=== PATIENT | female | born 1950 | race Two or more races ===

== ENCOUNTER 2016-07-27 11:07 | Observation (INO) | payer OTHER ==
[~2016-07-27] VITALS: Ht 157.5 cm; Wt 50.0 kg
[2016-07-27 11:09] VITALS: BP 165/66; PULSE 59; RESP 12; TEMP 98.1; O2SAT 100
[2016-07-27 11:41] VITALS: BP 139/64; PULSE 59; RESP 16; O2SAT 99
[2016-07-27] MEDS ORDERED: AMLO5 PO (11:43)
[2016-07-27] MEDS ORDERED: SODIUM CHLOR 0.9% 1000 ML INJ 1,000 ML IV SCH (11:45)
[2016-07-27] MEDS ORDERED: MORPHINE SULFATE 4 MG/ML INJ IV PUSH ONE ×2 (11:45→15:45)
[2016-07-27] MEDS ORDERED: SODIUM CHLORIDE 0.9% FLUSH 5 ML FLUSH IVF PRN (11:45)
[2016-07-27 12:10] LABS: BASOPHIL % 0.2 % (0.0-2.0); EOSINOPHIL % 0.3 % (0.0-4.0); HEMATOCRIT 34.3 % (35.0-46.0); HEMO FLAGS DIFF FINAL; LYMPH % 20.2 % (9.0-44.0); LYMPHOCYTE # 1.7 TH/MM3 (1.0-4.8); MEAN CELL VOLUME 85.8 FL (80.0-100.0); MEAN CORPUSCULAR HEMOGLOBIN 28.4 PG (27.0-34.0); MONO % 6.6 % (0.0-8.0); NEUT % 72.7 % (16.0-70.0); PLATELET COUNT 273 TH/MM3 (150-450); RED BLOOD COUNT 3.99 MIL/MM3 (4.00-5.30); RED CELL DISTRIBUTION WIDTH 13.3 % (11.6-17.2); WHITE BLOOD COUNT 8.2 TH/MM3 (4.0-11.0)
[2016-07-27] MEDS ORDERED: ONDANSETRON HCL 4 MG/2 ML VIAL IV ONE (12:15)
[2016-07-27 12:18] LABS: BLOOD, URINE MOD (NEG); GLUCOSE,URINE NEG (NEG); KETONE, URINE NEG (NEG); MUCUS URINE FEW /lpf (OCC); NITRITE,URINE NEG (NEG); PH, URINE 5.5 (5.0-8.5); SQUAMOUS EPITHELIAL CELL URINE <1 /hpf (0-5); URINE COLOR LIGHT-YELLOW (YELLW/STRAW)
[2016-07-27 12:19] LABS: COMMENT (UR) CULT NOT INDICATED; CULTURE IF INDICATED CULT NOT INDICATED
[2016-07-27 12:28] LABS: ANION GAP 8 MEQ/L (5-15); AST (GOT) 16 U/L (15-37); BICARBONATE 27.9 MEQ/L (21.0-32.0); BLOOD UREA NITROGEN 11 MG/DL (7-18); CHLORIDE 102 MEQ/L (98-107); GLOMERULAR FILTRATION RATE 62 ML/MIN (>89); POTASSIUM 3.6 MEQ/L (3.5-5.1); SODIUM (NA) 138 MEQ/L (136-145)
[2016-07-27 12:31] LABS: ALKALINE PHOSPHATASE 82 U/L (45-117); ALT (GPT) 17 U/L (10-53); TOTAL BILIRUBIN ADULT 0.6 MG/DL (0.2-1.0)
[2016-07-27 13:05] VITALS: BP 159/69; PULSE 59; RESP 18; O2SAT 98
--- NOTE | 2016-07-27 13:29 | PD ---
HPI Chief Complaint: Flank/Kidney Pain Time Seen by Provider: 11:17 Travel History International Travel<30 days: No Contact w/Intl Traveler<30days: No Traveled to known affect area: No History of Present Illness HPI This is a 66-year-old female who presents to the emergency department with left- sided flank pain, constant, moderate severity, that started 5 days ago and has persisted. She denies any fevers or chills. She denies any nausea or vomiting. She denies any dysuria or hematuria. The pain is worse when she moves and improved when she rests. She was told at [facility] on that she had a urinary tract infection. She was given Levaquin which she's been taking for 4 days but she feels like her symptoms are not improving. She did have a CT scan at that time which she says was reassuring. She has a history of an abnormal cervix for which she's was to follow-up with Dr. Orozco [facility] Past Medical History Hypertension: Yes Tetanus Vaccination: Unknown Influenza Vaccination: Yes ?: Not Menopausal: Yes Past Surgical History Surgical History: No Previous Surgery Social History Alcohol Use: No Tobacco Use: No Substance Use: No Allergies-Medications (Allergen,Severity, Reaction): Coded Allergies: No Known Allergies (Unverified , 07/27/16) Reported Meds & Prescriptions Reported Meds & Active Scripts Active Reported Norvasc (Amlodipine Besylate) 5 Mg Tab 5 Mg PO DAILY Review of Systems Except as stated in HPI: all other systems reviewed are Neg Physical Exam Narrative GENERAL: Uncomfortable appearing. SKIN: Warm and dry. HEAD: Atraumatic. Normocephalic. EYES: Pupils equal and round. No injection or drainage. ENT: Moist mucous membranes NECK: Trachea midline. CARDIOVASCULAR: Regular rate and rhythm. No murmur appreciated. RESPIRATORY: Clear to auscultation. Breath sounds equal bilaterally. GASTROINTESTINAL: Abdomen soft, non-tender, nondistended. : Left CVA tenderness. MUSCULOSKELETAL: No obvious deformities. NEUROLOGICAL: Awake and alert. No obvious cranial nerve deficits. Moving all extremities. PSYCHIATRIC: Appropriate mood and affect; insight and judgment normal. Data Data Last Documented VS Vital Signs Date Time Temp Pulse Resp B/P Pulse Ox O2 Delivery O2 Flow Rate FiO2 07/27/16 13:05 59 18 159/69 98 Room Air 07/27/16 11:09 98.1 Orders Complete Blood Count With Diff (07/27/16 11:34) Comprehensive Metabolic Panel (07/27/16 11:34) Lipase (07/27/16 11:34) Urinalysis - C+S If Indicated (07/27/16 11:34) Iv Access Insert/Monitor (07/27/16 11:34) Ecg Monitoring (07/27/16 11:34) Oximetry (07/27/16 11:34) Morphine Inj (Morphine Inj) (07/27/16 11:45) Sodium Chloride 0.9% Flush (Ns Flush) (07/27/16 11:45) Sodium Chlor 0.9% 1000 Ml Inj (Ns 1000 M (07/27/16 11:45) Ondansetron Inj (Zofran Inj) (07/27/16 12:15) Ct Abd/Pel W/O Iv Contrast (07/27/16 ) Spine, Thoracic-Ap/Lat/Sw(3vw) (07/27/16 ) Morphine Inj (Morphine Inj) (07/27/16 15:45) Mri Abdomen W&W/O Contrast (07/27/16 ) Consult Urology (07/27/16 ) Admit Order (Ed Use Only) (07/27/16 16:04) Labs Laboratory Tests Test 07/27/16 11:45 White Blood Count 8.2 TH/MM3 Red Blood Count 3.99 MIL/MM3 Hemoglobin 11.3 GM/DL Hematocrit 34.3 % Mean Corpuscular Volume 85.8 FL Mean Corpuscular Hemoglobin 28.4 PG Mean Corpuscular Hemoglobin 33.0 % Concent Red Cell Distribution Width 13.3 % Platelet Count 273 TH/MM3 Mean Platelet Volume 7.0 FL Neutrophils (%) (Auto) 72.7 % Lymphocytes (%) (Auto) 20.2 % Monocytes (%) (Auto) 6.6 % Eosinophils (%) (Auto) 0.3 % Basophils (%) (Auto) 0.2 % Neutrophils # (Auto) 6.0 TH/MM3 Lymphocytes # (Auto) 1.7 TH/MM3 Monocytes # (Auto) 0.5 TH/MM3 Eosinophils # (Auto) 0.0 TH/MM3 Basophils # (Auto) 0.0 TH/MM3 CBC Comment DIFF FINAL Differential Comment Urine Color LIGHT-YELLOW Urine Turbidity CLEAR Urine pH 5.5 Urine Specific [place] 1.007 Urine Protein NEG mg/dL Urine Glucose (UA) NEG mg/dL Urine Ketones NEG mg/dL Urine Occult Blood MOD Urine Nitrite NEG Urine Bilirubin NEG Urine Urobilinogen LESS THAN 2.0 MG/DL Urine Leukocyte Esterase NEG Urine RBC 1 /hpf Urine WBC 1 /hpf Urine Squamous Epithelial <1 /hpf Cells Urine Mucus FEW /lpf Microscopic Urinalysis Comment CULT NOT INDICATED Sodium Level 138 MEQ/L Potassium Level 3.6 MEQ/L Chloride Level 102 MEQ/L Carbon Dioxide Level 27.9 MEQ/L Anion Gap 8 MEQ/L Blood Urea Nitrogen 11 MG/DL Creatinine 0.90 MG/DL Estimat Glomerular Filtration 62 ML/MIN Rate Random Glucose 103 MG/DL Calcium Level 8.6 MG/DL Total Bilirubin 0.6 MG/DL Aspartate Amino Transf 16 U/L (AST/SGOT) Alanine Aminotransferase 17 U/L (ALT/SGPT) Alkaline Phosphatase 82 U/L Total Protein 7.6 GM/DL Albumin 3.4 GM/DL Lipase 175 U/L [facility] Medical Decision Making Medical Screen Exam Complete: Yes Emergency Medical Condition: Yes Interpretation(s) Afebrile, bradycardic, hypertensive Mild anemia Electrolytes within normal limits Lipase normal Urinalysis: No Infection Last 24 hours Impressions Thoracic Spine X-Ray 07/27/16 0000 Signed Impressions: Service Date/Time: Wednesday, July 27, 2016 13:31 - CONCLUSION: Thoracic spondylosis. No evidence of acute fracture or destructive changes. Rounded calcification is identified in the right upper quadrant of the abdomen which may represent a gallstone. Wilfred Watts MD Abdomen/Pelvis CT 07/27/16 0000 Signed Impressions: Service Date/Time: Wednesday, July 27, 2016 13:36 - CONCLUSION: Mild to moderate hydronephrosis of the left kidney with significant perinephric and paranephric fluid stranding characteristic of recent rupture of the collecting system. No evidence of obstructing calculus. Significant soft tissue swelling along the proximal left ureter. Ureteral mass should be excluded. Cholelithiasis with distended gallbladder. Developing retroperitoneal lymphadenopathy. Wilfred Watts MD Differential Diagnosis Nephrolithiasis, pyelonephritis, pulmonary embolism, pneumonia, thoracic depression fracture, lumbar spine compression fracture Narrative Course This is a 66-year-old female who presents to the emergency department with left- sided flank pain that started 4 days ago. She was seen at an outside hospital and diagnosed with likely pyelonephritis. Here today she continues to appear uncomfortable. She was placed on a monitor and an IV was established. Labs were obtained which were all reassuring. Given her labs were unremarkable but she had a fair amount of pain I repeated her CT imaging which demonstrates a ruptured collecting system with surrounding perinephric stranding. I spoke to Dr. Bowden who recommended an MRI of the abdomen to evaluate for possible ureteral mass. Patient will be admitted for pain control and urologic evaluation. Diagnosis Primary Impression: Flank pain Admitting Information Admitting Physician Requests: Observation Patti Damon MD Jul 27, 2016 13:28
--- NOTE | 2016-07-27 15:20 | RADRPT ---
EXAM DATE/TIME: 07/27/2016 13:31 [facility] COMPARISON: No previous studies available for comparison. INDICATIONS : Left flank pain, no known trauma. MEDICAL HISTORY : None. SURGICAL HISTORY : None. ENCOUNTER: Initial ACUITY: 1 day PAIN SCORE: 8/10 LOCATION: Bilateral thoracic spine FINDINGS: There is normal alignment of the thoracic vertebral bodies. Vertebral body height is maintained. No evidence of fracture or subluxation. Pedicles are intact at all levels. Joint disease with spondylo sis is seen in the mid to lower thoracic spine. Significant decreased bone mineralization is noted Th e paravertebral reflections are not thickened. CONCLUSION: Thoracic spondylosis. No evidence of acute fracture or destructive changes. Rounded calcification is identified in the right upper quadrant of the abdomen which may represent a gallstone. Wilfred Watts MD on July 27, 2016 at 15:16 Board Certified Radiologist. This report was verified electronically.
--- NOTE | 2016-07-27 15:33 | RADRPT ---
EXAM DATE/TIME: 07/27/2016 13:36 [facility] COMPARISON: No previous studies available for comparison. INDICATIONS : Left flank pain x 5 days. ORAL CONTRAST: No oral contrast ingested. RADIATION DOSE: 13.28 CTDIvol (mGy) MEDICAL HISTORY : Hypertension. SURGICAL HISTORY : None. ENCOUNTER: Initial ACUITY: 4 - 6 days PAIN SCALE: 10/10 LOCATION: Left flank TECHNIQUE: Volumetric scanning of the abdomen and pelvis was performed. Using automated exposure control and ad justment of the mA and/or kV according to patient size, radiation dose was kept as low as reasonably achievable to obtain optimal diagnostic quality images. FINDINGS: LOWER LUNGS: Mild atelectasis is seen in the left lung base. LIVER: Simple cysts are identified in both the left and right hepatic lobes. There is no evidence of intrahe patic biliary duct dilatation. Liver is otherwise unremarkable. Gallbladder is moderately distended. There is a densely calcified stone within the neck of the gallbladder. SPLEEN: Normal size without lesion. PANCREAS: Within normal limits. KIDNEYS: The left renal collecting system is mildly to moderately distended. There is significant perinephric fluid collection which tracks along the hilum of the kidney and along the vascular structures. Signif icant soft tissue fullness and thickening is identified at the ureteropelvic junction. There is no ev idence of ureteral dilatation or stone below this level. No calcified stones are seen within the kidn ey or renal pelvis. Right kidney and collecting system are unremarkable. ADRENAL GLANDS: Within normal limits. VASCULAR: There is no aortic aneurysm. BOWEL/MESENTERY: The stomach, small bowel, and colon demonstrate no acute abnormality. There is no free intraperitone al air or fluid. ABDOMINAL WALL: Within normal limits. RETROPERITONEUM: Prominent retroperitoneal lymph nodes ranging in size up to 14 x 10 mm in size are noted. BLADDER: No wall thickening or mass. REPRODUCTIVE: Within normal limits. INGUINAL: There is no lymphadenopathy or hernia. MUSCULOSKELETAL: Within normal limits for patient age. CONCLUSION: Mild to moderate hydronephrosis of the left kidney with significant perinephric and paranephric fluid stranding characteristic of recent rupture of the collecting system. No evidence of obstructing calculus. Significant soft tissue swelling along the proximal left ureter. Ureteral mass should be excluded. Cholelithiasis with distended gallbladder. Developing retroperitoneal lymphadenopathy. Wilfred Watts MD on July 27, 2016 at 15:21 Board Certified Radiologist. This report was verified electronically.
--- NOTE | 2016-07-27 17:27 | HHI.HP ---
HPI Service [facility] Primary Care Physician Unknown Admission Diagnosis flank pain Diagnoses: Chief Complaint: left flank pain (Vane HallInocencia BRANCH EXAMINER) Travel History International Travel<30 Days: No Contact w/Intl Traveler <30 Da: No Traveled to Known Affected Are: No (Vane Hall) History of Present Illness This is a a 66-year-old female who is generally in good health, PMHx of HTN. Presented to ED with complain of left flank since , it's sharp, constant , has been getting worst. Was seen in the ED at [facility] and found with UTI and some type of abnormality in CT of abdomen and pelvis. She was prescribed Levaquin and [place]. Was instructed to follow up with Dr. Orozco but has not done yet. She has been voiding slowly, has not noted any blood in urine, no burning. No fever, no chills. No nausea or vomiting, appetite has been poor. She has not had a BM in 5 days. States she has been [place] 1 tab 3 x a day with some relief. Laboratory work up essentially unremarkable, no leukocytosis, no fever. Repeat CT demonstrated a rupture of collecting system with perinephric stranding. Dr. Damon spoke to Dr. Bowden who recommended an MRI of abdomen to evaluate for ureteral mass. Pt. is seen in the ED in the presence of her son. She has mild tenderness to palpation of left flank. She was been started on empiric antibiotics and Morphine has been given. Pain has lessened. Pt. admitted for further evaluation and treatment. Last Impressions Thoracic Spine X-Ray 07/27/16 0000 Signed Impressions: Service Date/Time: Wednesday, July 27, 2016 13:31 - CONCLUSION: Thoracic spondylosis. No evidence of acute fracture or destructive changes. Rounded calcification is identified in the right upper quadrant of the abdomen which may represent a gallstone. Wilfred Watts MD Abdomen/Pelvis CT 07/27/16 0000 Signed Impressions: Service Date/Time: Wednesday, July 27, 2016 13:36 - CONCLUSION: Mild to moderate hydronephrosis of the left kidney with significant perinephric and paranephric fluid stranding characteristic of recent rupture of the collecting system. No evidence of obstructing calculus. Significant soft tissue swelling along the proximal left ureter. Ureteral mass should be excluded. Cholelithiasis with distended gallbladder. Developing retroperitoneal lymphadenopathy. Wilfred Watts MD (Vane Hall) Review of Systems Constitutional: COMPLAINS OF: Change in appetite, DENIES: Diaphoretic episodes , Fatigue, Fever, Weight gain, Weight loss, Chills, Dizziness, Night Sweats Endocrine: DENIES: Abnorml menstrual pattern, Heat/cold intolerance, Polydipsia , Polyuria, Polyphagia Eyes: DENIES: Blurred vision, Diplopia, Eye inflammation, Eye pain, Vision loss , Photosensitivity, Double Vision Ears, nose, mouth, throat: DENIES: Tinnitus, Hearing loss, Vertigo, Nasal discharge, Oral lesions, Throat pain, Hoarseness, Ear Pain, Running Nose, Epistaxis, Sinus Pain, Toothache, Odynophagia Respiratory: DENIES: Apneas, Cough, Snoring, Wheezing, Hemoptysis, Sputum production, Shortness of breath Cardiovascular: DENIES: Chest pain, Palpitations, Syncope, Dyspnea on Exertion , PND, Lower Extremity Edema, Orthopnea, Claudication Gastrointestinal: COMPLAINS OF: Abdominal pain (left flank pain ), Constipation , DENIES: Black stools, Bloody stools, Diarrhea, Nausea, Vomiting, Difficulty Swallowing, Anorexia Genitourinary: COMPLAINS OF: Urgency, DENIES: Abnormal vaginal bleeding, Dysmenorrhea, Dyspareunia, Sexual dysfunction, Urinary frequency, Urinary incontinence, Hematuria, Dysuria, Nocturia, Vaginal discharge Musculoskeletal: DENIES: Joint pain, Muscle aches, Stiffness, Joint Swelling, Back pain, Neck pain Integumentary: DENIES: Abnormal pigmentation, Pruritus, Rash, Nail changes, Breast masses, Breast skin changes, Nipple discharge Hematologic/lymphatic: DENIES: Bruising, Lymphadenopathy Immunologic/allergic: DENIES: Eczema, Urticaria Neurologic: DENIES: Abnormal gait, Headache, Localized weakness, Paresthesias, Seizures, Speech Problems, Tremor, Poor Balance Psychiatric: DENIES: Anxiety, Confusion, Mood changes, Depression, Hallucinations, Agitation, Suicidal Ideation, Homicidal Ideation, Delusions ( Vane Hall) Past Family Social History Past Medical History HTN Previous colonoscopy in 2013, normal findings Up to date on Mammograms has not had a pelvic exam in many years > 5 Past Surgical History None Reported Medications Reported Meds & Active Scripts Active Reported Norvasc (Amlodipine Besylate) 5 Mg Tab 5 Mg PO DAILY (Vane Hall) Allergies: Coded Allergies: No Known Allergies (Unverified , 07/27/16) Active Ordered Medications Inpatient Medications Amlodipine Besylate 5 mg 5 mg DAILY PO ; Start 07/28/16 at 09:00 Ceftriaxone Sodium/Sodium Chloride (Rocephin Inj/NS Inj) 100 ml @ 200 mls/hr Q24H IV ; Start 07/27/16 at 18:00 IV Flush 2 ml 2 ml UNSCH PRN IVF FLUSH AFTER USING IV ACCESS; Start 07/27/16 at 11:45 Morphine Sulfate (Morphine Inj) 4 mg Q3H PRN IV PUSH PAIN 5 TO 10; Start at 20:00 Ondansetron HCl (Zofran Inj) 4 mg Q8HR PRN IV PUSH n/v; Start 07/27/16 at 22:00 Sodium Chloride 1,000 ml @ 84 mls/hr [id number] IV ; Start 07/27/16 at 17:15 Sodium Chloride (NS 1000 ml Inj) 1,000 ml @ 999 mls/hr Q1H1M IV Last administered on 07/27/16t 12:18; Start 07/27/16 at 11:45; Stop 07/27/16 at 12:45 ; Status DC Family History Mother from colon cancer Father from old age Social History , has 7 children. No ETOH, no substance abuse, no smoking. 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 (Vane Hall) Physical Exam Vital Signs Vital Signs Date Time Temp Pulse Resp B/P Pulse Ox O2 Delivery O2 Flow Rate FiO2 07/27/16 11:41 59 16 139/64 99 Room Air 07/27/16 11:09 98.1 59 12 165/66 100 Room Air Physical Exam GENERAL: This is a well-nourished, well-developed patient, in no apparent distress. SKIN: No rashes, ecchymoses or lesions. Cool and dry. HEAD: Atraumatic. Normocephalic. No temporal or scalp tenderness. EYES: Pupils equal round and reactive. Extraocular motions intact. No scleral icterus. No injection or drainage. ENT: Nose without bleeding, purulent drainage or septal hematoma. Throat without erythema, tonsillar hypertrophy or exudate. Uvula midline. Airway patent. NECK: Trachea midline. No JVD or lymphadenopathy. Supple, nontender, no meningeal signs. CARDIOVASCULAR: Regular rate and rhythm without murmurs, gallops, or rubs. RESPIRATORY: Clear to auscultation. Breath sounds equal bilaterally. No wheezes , rales, or rhonchi. GASTROINTESTINAL: Abdomen soft, nondistended. Mild tenderness to left flank. No hepato-splenomegaly, or palpable masses. No guarding. MUSCULOSKELETAL: Extremities without clubbing, cyanosis, or edema. No joint tenderness, effusion, or edema noted. No calf tenderness. Negative Homans sign bilaterally. NEUROLOGICAL: Awake and alert. Cranial nerves II through XII intact. Motor and sensory grossly within normal limits. Five out of 5 muscle strength in all muscle groups. Normal speech. Laboratory Laboratory Tests Test 07/27/16 11:45 White Blood Count 8.2 Red Blood Count 3.99 Hemoglobin 11.3 Hematocrit 34.3 Mean Corpuscular Volume 85.8 Mean Corpuscular Hemoglobin 28.4 Mean Corpuscular Hemoglobin 33.0 Concent Red Cell Distribution Width 13.3 Platelet Count 273 Mean Platelet Volume 7.0 Neutrophils (%) (Auto) 72.7 Lymphocytes (%) (Auto) 20.2 Monocytes (%) (Auto) 6.6 Eosinophils (%) (Auto) 0.3 Basophils (%) (Auto) 0.2 Neutrophils # (Auto) 6.0 Lymphocytes # (Auto) 1.7 Monocytes # (Auto) 0.5 Eosinophils # (Auto) 0.0 Basophils # (Auto) 0.0 CBC Comment DIFF FINAL Differential Comment Urine Color LIGHT-YELLOW Urine Turbidity CLEAR Urine pH 5.5 Urine Specific [place] 1.007 Urine Protein NEG Urine Glucose (UA) NEG Urine Ketones NEG Urine Occult Blood MOD Urine Nitrite NEG Urine Bilirubin NEG Urine Urobilinogen LESS THAN 2.0 Urine Leukocyte Esterase NEG Urine RBC 1 Urine WBC 1 Urine Squamous Epithelial <1 Cells Urine Mucus FEW Microscopic Urinalysis Comment CULT NOT INDICATED Sodium Level 138 Potassium Level 3.6 Chloride Level 102 Carbon Dioxide Level 27.9 Anion Gap 8 Blood Urea Nitrogen 11 Creatinine 0.90 Estimat Glomerular Filtration 62 Rate Random Glucose 103 Calcium Level 8.6 Total Bilirubin 0.6 Aspartate Amino Transf 16 (AST/SGOT) Alanine Aminotransferase 17 (ALT/SGPT) Alkaline Phosphatase 82 Total Protein 7.6 Albumin 3.4 Lipase 175 (Vane Hall) Result Diagram: 07/27/16 1145 07/27/16 1145 Imaging Last Impressions Thoracic Spine X-Ray 07/27/16 0000 Signed Impressions: Service Date/Time: Wednesday, July 27, 2016 13:31 - CONCLUSION: Thoracic spondylosis. No evidence of acute fracture or destructive changes. Rounded calcification is identified in the right upper quadrant of the abdomen which may represent a gallstone. Wilfred Watts MD Abdomen/Pelvis CT 07/27/16 0000 Signed Impressions: Service Date/Time: Wednesday, July 27, 2016 13:36 - CONCLUSION: Mild to moderate hydronephrosis of the left kidney with significant perinephric and paranephric fluid stranding characteristic of recent rupture of the collecting system. No evidence of obstructing calculus. Significant soft tissue swelling along the proximal left ureter. Ureteral mass should be excluded. Cholelithiasis with distended gallbladder. Developing retroperitoneal lymphadenopathy. Wilfred Watts MD (Vane Hall) Assessment and Plan Problem List: (1) Flank pain (2) Pyelonephritis (3) Hydronephrosis of left kidney (4) possible rupture of collecting system (5) Constipation Assessment and Plan Admit to Dr. El 66 year old female admitted with left flank pain, recently dx with pyelonephritis. CT of abdomen and pelvis done with findings of mild to moderate hydronephrosis of the left kidney with significant perinephric and paranephric fluid stranding characteristic of recent rupture of the collecting system. No evidence of obstructing calculus. Significant soft tissue swelling along the proximal left ureter. Ureteral mass should be excluded. Cholelithiasis with distended gallbladder. Developing retroperitoneal lymphadenopathy. -continue with IVF -IV Rocephin, follow urine cultures -Dr. Bowden has been consulted, input appreciated -MRI of abdomen ordered to evaluate for possible mass. Cholelithiasis with distended gallbladder -monitor for now HTN, stable -continue home meds Constipation -Colace 100 mg PO BID -Dulcolax, MOM PRN Home medications reviewed, initiated as indicated SCDs for DVT prophylaxis Plan of care discussed with pt and son, questions answered. Plan of care discussed with attending and RN. Further management of the patient will be dependent on the hospital course. This patient was seen by myself and Dr. El, this H/P is written on his behalf. (Vane Hall) Assessment and Plan pt is seen & examined d/w PT d/w vane see orders intractable left flank pain /left perinephric stranding? left ureteral mass obtain urology consult IVF iv Abx 'analgesic see H&P will f/u Franc El MD Jul 27, 2016 17:52 (Franc El MD) Problem Qualifiers (1) Constipation: Qualified Code: K59.00 - Constipation, unspecified constipation type Vane Hall Jul 27, 2016 17:27 Franc El MD Jul 28, 2016 09:30
[2016-07-27 17:37] VITALS: BP 157/72
--- NOTE | 2016-07-27 17:52 | HHI.PR ---
Objective Objective Results - Vital Signs Date Time Temp Pulse Resp B/P Pulse Ox O2 Delivery O2 Flow Rate FiO2 07/27/16 17:37 54 18 157/72 98 07/27/16 13:05 59 18 159/69 98 Room Air 07/27/16 11:41 59 16 139/64 99 Room Air 07/27/16 11:09 98.1 59 12 165/66 100 Room Air Result Diagram: 07/27/16 1145 07/27/16 1145 Other Results Laboratory Tests Test 07/27/16 11:45 White Blood Count 8.2 Red Blood Count 3.99 Hemoglobin 11.3 Hematocrit 34.3 Mean Corpuscular Volume 85.8 Mean Corpuscular Hemoglobin 28.4 Mean Corpuscular Hemoglobin 33.0 Concent Red Cell Distribution Width 13.3 Platelet Count 273 Mean Platelet Volume 7.0 Neutrophils (%) (Auto) 72.7 Lymphocytes (%) (Auto) 20.2 Monocytes (%) (Auto) 6.6 Eosinophils (%) (Auto) 0.3 Basophils (%) (Auto) 0.2 Neutrophils # (Auto) 6.0 Lymphocytes # (Auto) 1.7 Monocytes # (Auto) 0.5 Eosinophils # (Auto) 0.0 Basophils # (Auto) 0.0 CBC Comment DIFF FINAL Differential Comment Urine Color LIGHT-YELLOW Urine Turbidity CLEAR Urine pH 5.5 Urine Specific [place] 1.007 Urine Protein NEG Urine Glucose (UA) NEG Urine Ketones NEG Urine Occult Blood MOD Urine Nitrite NEG Urine Bilirubin NEG Urine Urobilinogen LESS THAN 2.0 Urine Leukocyte Esterase NEG Urine RBC 1 Urine WBC 1 Urine Squamous Epithelial <1 Cells Urine Mucus FEW Microscopic Urinalysis Comment CULT NOT INDICATED Sodium Level 138 Potassium Level 3.6 Chloride Level 102 Carbon Dioxide Level 27.9 Anion Gap 8 Blood Urea Nitrogen 11 Creatinine 0.90 Estimat Glomerular Filtration 62 Rate Random Glucose 103 Calcium Level 8.6 Total Bilirubin 0.6 Aspartate Amino Transf 16 (AST/SGOT) Alanine Aminotransferase 17 (ALT/SGPT) Alkaline Phosphatase 82 Total Protein 7.6 Albumin 3.4 Lipase 175 Physical Exam Physical Exam pt is seen & examined d/w PT d/w karina see orders intractable left flank pain /left perinephric stranding? left ureteral mass obtain urology consult IVF iv Abx 'analgesic see H&P will f/u Franc El MD Jul 27, 2016 17:52
[2016-07-27] MEDS: cefTRIAXone INJ 1,000 MG in SODIUM CHLORIDE 0.9% INJ 100 ML IV SCH (18:26)
[2016-07-27] MEDS: SODIUM CHLOR 0.9% 1000 ML INJ 1,000 ML IV SCH (18:28)
[2016-07-27] MEDS ORDERED: GADODIAMIDE PF 287 MG/ML 10 ML VIAL (for RAD MRI) IV ONE (19:18)
[2016-07-27] MEDS ORDERED: BISACODYL 10 MG SUPP RECTAL PRN (19:45)
[2016-07-27] MEDS ORDERED: MAGNESIUM HYDROXIDE SUSP 30 ML CUP PO PRN (19:45)
--- NOTE | 2016-07-27 20:09 | RADRPT ---
EXAM DATE/TIME: 07/27/2016 18:56 [facility] COMPARISON: CT ABDOMEN & PELVIS W/O CONTRAST, July 27, 2016, 13:36. INDICATIONS : Abnormal CT scan. CONTRAST: 5 cc Omniscan (gadodiamide) IV MEDICAL HISTORY : None. SURGICAL HISTORY : None. ENCOUNTER: Subsequent ACUITY: 2 day PAIN SCORE: 4/10 LOCATION: Abdomen TECHNIQUE: Multiplanar, multisequence magnetic resonance imaging of the abdomen was performed wit hout and with intravenous contrast. FINDINGS: There is marked perinephric stranding about the left kidney. I do not see an etiology for the obstruction. Retrograde pyelogram is suggested. Cysts are seen in the liver. Renal parenchyma are unremarkable. There is minimal paraaortic adenopathy as described previously. Point of obstruction is not visualiz ed. CONCLUSION: Point of obstruction on the left is not visualized. Kidneys are intrinsically normal . Retrograde pyelogram is suggested. Raghu Anthony MD FACR on July 27, 2016 at 19:42 Board Certified Radiologist. This report was verified electronically.
[2016-07-27] MEDS: MORPHINE SULFATE 4 MG/ML INJ IV PUSH PRN (20:33)
[2016-07-27] MEDS: DOCUSATE SODIUM 100 MG CAP PO SCH (20:33)
[2016-07-27 21:40] VITALS: BP 150/67; PULSE 66; RESP 18; TEMP 98; O2SAT 92
[2016-07-27] MEDS ORDERED: ONDANSETRON HCL 4 MG/2 ML VIAL IV PUSH PRN (22:00)
[2016-07-28 01:41] VITALS: BP 133/67; PULSE 78; RESP 20; TEMP 98; O2SAT 95
[2016-07-28 03:29] VITALS: PULSE 69
[2016-07-28] MEDS: MORPHINE SULFATE 4 MG/ML INJ IV PUSH PRN ×2 (04:08→07:32)
[2016-07-28] MEDS: SODIUM CHLOR 0.9% 1000 ML INJ 1,000 ML IV SCH ×2 (05:10→17:05)
[2016-07-28 05:47] LABS: BICARBONATE 29.3 MEQ/L (21.0-32.0); POTASSIUM 3.8 MEQ/L (3.5-5.1)
[2016-07-28 06:46] VITALS: BP 120/70; PULSE 56; RESP 20; TEMP 98.1; O2SAT 98
[2016-07-28 08:00] VITALS: BP 130/54; PULSE 77; PULSE 79; RESP 16; TEMP 99.6; O2SAT 96
[2016-07-28] MEDS: DOCUSATE SODIUM 100 MG CAP PO SCH (08:39)
--- NOTE | 2016-07-28 08:41 | HHI.PR ---
Subjective Subjective Remarks sitting up, c/o pain, morphine not working upset, wants to talk to doctor and find out what is causing pain no fever no cp no sob has not had BM yet son at [facility] informed of MRI findings and plan for today states she had a recent abnormal PAP and was told to see Dr. Orozco Review of Systems Constitutional Constitutional Remarks 12 point ROS completed, negative except as noted above Vitals/Results Vital Signs Vital Signs Date Time Temp Pulse Resp B/P Pulse Ox O2 Delivery O2 Flow Rate FiO2 07/28/16 06:46 98.1 56 20 120/70 98 07/28/16 05:29 18 07/28/16 03:29 69 07/28/16 01:41 98.0 78 20 133/67 95 07/27/16 21:40 98.0 66 18 150/67 92 07/27/16 17:37 54 18 157/72 98 07/27/16 13:05 59 18 159/69 98 Room Air 07/27/16 11:41 59 16 139/64 99 Room Air 07/27/16 11:09 98.1 59 12 165/66 100 Room Air CBC/BMP: 07/27/16 1145 07/28/16 0445 Lab Results Laboratory Tests Test 07/27/16 07/28/16 11:45 04:45 White Blood Count 8.2 TH/MM3 Red Blood Count 3.99 MIL/MM3 Hemoglobin 11.3 GM/DL Hematocrit 34.3 % Mean Corpuscular Volume 85.8 FL Mean Corpuscular Hemoglobin 28.4 PG Mean Corpuscular Hemoglobin 33.0 % Concent Red Cell Distribution Width 13.3 % Platelet Count 273 TH/MM3 Mean Platelet Volume 7.0 FL Neutrophils (%) (Auto) 72.7 % Lymphocytes (%) (Auto) 20.2 % Monocytes (%) (Auto) 6.6 % Eosinophils (%) (Auto) 0.3 % Basophils (%) (Auto) 0.2 % Neutrophils # (Auto) 6.0 TH/MM3 Lymphocytes # (Auto) 1.7 TH/MM3 Monocytes # (Auto) 0.5 TH/MM3 Eosinophils # (Auto) 0.0 TH/MM3 Basophils # (Auto) 0.0 TH/MM3 CBC Comment DIFF FINAL Differential Comment Urine Color LIGHT-YELLOW Urine Turbidity CLEAR Urine pH 5.5 Urine Specific Morris 1.007 Urine Protein NEG mg/dL Urine Glucose (UA) NEG mg/dL Urine Ketones NEG mg/dL Urine Occult Blood MOD Urine Nitrite NEG Urine Bilirubin NEG Urine Urobilinogen LESS THAN 2.0 MG/DL Urine Leukocyte Esterase NEG Urine RBC 1 /hpf Urine WBC 1 /hpf Urine Squamous Epithelial <1 /hpf Cells Urine Mucus FEW /lpf Microscopic Urinalysis Comment CULT NOT INDICATED Sodium Level 138 MEQ/L 141 MEQ/L Potassium Level 3.6 MEQ/L 3.8 MEQ/L Chloride Level 102 MEQ/L 104 MEQ/L Carbon Dioxide Level 27.9 MEQ/L 29.3 MEQ/L Anion Gap 8 MEQ/L 8 MEQ/L Blood Urea Nitrogen 11 MG/DL 10 MG/DL Creatinine 0.90 MG/DL 0.83 MG/DL Estimat Glomerular Filtration 62 ML/MIN 68 ML/MIN Rate Random Glucose 103 MG/DL 95 MG/DL Calcium Level 8.6 MG/DL 8.2 MG/DL Total Bilirubin 0.6 MG/DL Aspartate Amino Transf 16 U/L (AST/SGOT) Alanine Aminotransferase 17 U/L (ALT/SGPT) Alkaline Phosphatase 82 U/L Total Protein 7.6 GM/DL Albumin 3.4 GM/DL Lipase 175 U/L Imaging Remarks Last Impressions Thoracic Spine X-Ray 07/27/16 0000 Signed Impressions: Service Date/Time: Wednesday, July 27, 2016 13:31 - CONCLUSION: Thoracic spondylosis. No evidence of acute fracture or destructive changes. Rounded calcification is identified in the right upper quadrant of the abdomen which may represent a gallstone. Wilfred Watts MD Abdomen/Pelvis CT 07/27/16 0000 Signed Impressions: Service Date/Time: Wednesday, July 27, 2016 13:36 - CONCLUSION: Mild to moderate hydronephrosis of the left kidney with significant perinephric and paranephric fluid stranding characteristic of recent rupture of the collecting system. No evidence of obstructing calculus. Significant soft tissue swelling along the proximal left ureter. Ureteral mass should be excluded. Cholelithiasis with distended gallbladder. Developing retroperitoneal lymphadenopathy. Wilfred Watts MD Abdomen MRI 07/27/16 0000 Signed Impressions: Service Date/Time: Wednesday, July 27, 2016 18:56 - CONCLUSION: Point of obstruction on the left is not visualized. Kidneys are intrinsically normal. Retrograde pyelogram is suggested. Raghu Anthony MD FACR Physical Exam General General Appearance: Well Developed, Well Nourished, No Acute Distress, Comfortable Eyes Eye Exam: Pupils Equal, Pupils Reactive Ears & Nose Ears & Nose Exam: Nasal Mucosa Shafter Throat Throat Exam: Oral Mucosa Shafter & Moist Neck Neck Exam: Neck Supple, Trachea Midline Pulmonary Resp Exam: Clear Bilaterally, No Distress Cardiology CV Exam: Regular, Good Perfusion Gastrointestinal/Abdomen GI Exam: Soft, Bowel Sounds Present, Non-Distended GI Remarks left flank tenderness Musculoskeletal MS Exam: Joints Intact Integumentary Skin Exam: Warm, Dry Extremeties Extremities Exam: No Edema, Pedal Pulses Palpable Neurologic Neuro Exam: Alert, Awake, Oriented, Speech Clear, Moving All Extremities, No Focal Deficits VTE Prophylaxis VTE Prophylaxis Device: SCDs Assessment/Plan Problem List: (1) Flank pain (2) Pyelonephritis (3) Hydronephrosis of left kidney (4) possible rupture of collecting system (5) Constipation Assessment/Plan 66 year old female admitted with left flank pain, recently dx with pyelonephritis. CT of abdomen and pelvis done with findings of mild to moderate hydronephrosis of the left kidney with significant perinephric and paranephric fluid stranding characteristic of recent rupture of the collecting system. No evidence of obstructing calculus. Significant soft tissue swelling along the proximal left ureter. Ureteral mass should be excluded. Cholelithiasis with distended gallbladder. Developing retroperitoneal lymphadenopathy. -continue with IVF -IV Rocephin, follow urine cultures -Dr. Bowden has been consulted, input appreciated -MRI of abdomen done, results noted, point of obstruction not visualized, kidneys intrinsically small normal, retrograde pyelogram is suggested. -renal function stable, voiding well --D/C Morphine, change to Dilaudid Cholelithiasis with distended gallbladder -monitor for now HTN, stable -continue home meds Constipation, no BM yet -Colace 100 mg PO BID -Dulcolax, MOM PRN Abnormal pap -has been referred to Dr. Orozco, f/u as OP SCDs for DVT prophylaxis continue to monitor, f/u after Dr. Bowden evaluates D/W RN D/W pt and son D/W Dr. El This patient was seen by myself and Dr. El, this note is written on his behalf. Problem Qualifiers (1) Constipation: Qualified Code: K59.00 - Constipation, unspecified constipation type [facility] Jul 28, 2016 08:41
[2016-07-28] MEDS ORDERED: HYDROmorphone HCL PF 1 MG/ML VIAL IV PUSH PRN (08:45)
[2016-07-28] MEDS ORDERED: amLODIPine BESYLATE 5 MG TAB PO SCH (09:00)
[2016-07-28 10:29] LABS: HEMATOCRIT 31.2 % (35.0-46.0); MEAN CELL VOLUME 85.8 FL (80.0-100.0); MEAN CORPUSCULAR HEMOGLOBIN 27.6 PG (27.0-34.0); MEAN CORPUSCULAR HGB CONC 32.2 % (32.0-36.0); PLATELET COUNT 249 TH/MM3 (150-450); RED BLOOD COUNT 3.64 MIL/MM3 (4.00-5.30); RED CELL DISTRIBUTION WIDTH 13.4 % (11.6-17.2); REVIEW FLAG FINAL; WHITE BLOOD COUNT 9.7 TH/MM3 (4.0-11.0)
[2016-07-28 12:53] VITALS: BP 148/69; PULSE 84; RESP 16; TEMP 99.1; O2SAT 94
[2016-07-28] MEDS ORDERED: DOCU1CAP39 PO (16:51)
--- NOTE | 2016-07-28 16:51 | HHI.DCPOC ---
Discharge Care Plan Diagnosis: (1) Flank pain (2) Pyelonephritis (3) Hydronephrosis of left kidney (4) possible rupture of collecting system (5) Constipation Your Health Problems Are: Anxiety Additional Problems PAIN Goals to Promote Your Health * To prevent worsening of your condition and complications * To maintain your health at the optimal level Directions to Meet Your Goals Take your medications as prescribed Follow your dietary instruction Follow activity as directed Keep your appointments as scheduled Take your immunizations and boosters as scheduled If your symptoms worsen call your PCP, if no PCP go to Urgent Care Center or Emergency Room Smoking is Dangerous to Your Health. Avoid second hand smoke Call the 24-hour hour crisis hotline for domestic abuse at [facility] Jul 28, 2016 16:51
--- NOTE | 2016-07-28 17:07 | PD.CONS ---
[facility] Service Urology Consult Requested By Reason for Consult Left hydronephrosis Primary Care Physician Unknown Diagnosis: (1) Flank pain ICD Code: R10.9 (2) Pyelonephritis ICD Code: N12 (3) Hydronephrosis of left kidney ICD Code: N13.30 (4) possible rupture of collecting system (5) Constipation ICD Code: K59.00 History of Present Illness 58 year-old female with no prior urologic history who developed left flank pain last week. She initially presented to [facility] emergency room and was diagnosed with left pyelonephritis and treated with antibiotics. She presented to [place] emergency room yesterday with ongoing left flank pain. A CT scan study was performed that demonstrated moderate left hydronephrosis with perinephric fluid stranding consistent with forniceal rupture. No definitive renal or ureteral stones were seen. There was significant soft tissue swelling noted along the proximal left ureter. Patient was admitted for analgesic support and had an MRI study ordered. The MRI study fail to demonstrate any ongoing hydronephrosis of either kidney, evidence of mass lesions or calculi. Despite the negative MRI findings, the patient continued to complain of left flank pain albeit of a lesser magnitude. Patient is vital signs have remained stable and there was no evidence of any significant abnormalities on her lab values. At the time of consultation the patient rated her pain a 5 out of 10. Patient denies a fever or gross hematuria. Urinalysis was negative. Review of Systems Genitourinary: DENIES: Hematuria, Dysuria Musculoskeletal: COMPLAINS OF: Back pain (left flank) Other Remainder of systems review were negative Past Family Social History Past Medical History Hypertension Past Surgical History Denies Reported Medications Norvas Allergies: Coded Allergies: No Known Allergies (Unverified , 07/27/16) Active Ordered Medications Refer to EMR Family History Mother from colon cancer Social History Denies tobacco, alcohol or intravenous drug abuse Physical Exam Vital Signs Vital Signs Date Time Temp Pulse Resp B/P Pulse Ox O2 Delivery O2 Flow Rate FiO2 07/28/16 12:53 99.1 84 16 148/69 94 07/28/16 08:00 79 07/28/16 08:00 99.6 77 16 130/54 96 07/28/16 07:37 20 07/28/16 06:46 98.1 56 20 120/70 98 07/28/16 03:29 69 07/28/16 01:41 98.0 78 20 133/67 95 07/27/16 21:40 98.0 66 18 150/67 92 07/27/16 17:37 54 18 157/72 98 Physical Exam GENERAL: This is a well-nourished, well-developed patient, in no apparent distress. SKIN: No rashes, ecchymoses or lesions. Cool and dry. HEAD: Atraumatic. Normocephalic. No temporal or scalp tenderness. EYES: Pupils equal round and reactive. Extraocular motions intact. No scleral icterus. No injection or drainage. ENT: Nose without bleeding, purulent drainage or septal hematoma. Throat without erythema, tonsillar hypertrophy or exudate. Uvula midline. Airway patent. NECK: Trachea midline. No JVD or lymphadenopathy. Supple, nontender, no meningeal signs. CARDIOVASCULAR: Regular rate and rhythm without murmurs, gallops, or rubs. RESPIRATORY: Clear to auscultation. Breath sounds equal bilaterally. No wheezes , rales, or rhonchi. GASTROINTESTINAL: Abdomen soft, non-tender, nondistended. No hepato-splenomegaly , or palpable masses. No guarding. : No CVA tenderness MUSCULOSKELETAL: Extremities without clubbing, cyanosis, or edema. No joint tenderness, effusion, or edema noted. No calf tenderness. Negative Homans sign bilaterally. NEUROLOGICAL: Awake and alert. Cranial nerves II through XII intact. Motor and sensory grossly within normal limits. Five out of 5 muscle strength in all muscle groups. Normal speech. Laboratory Laboratory Tests Test 07/28/16 07/28/16 04:45 10:13 Sodium Level 141 Potassium Level 3.8 Chloride Level 104 Carbon Dioxide Level 29.3 Anion Gap 8 Blood Urea Nitrogen 10 Creatinine 0.83 Estimat Glomerular Filtration 68 Rate Random Glucose 95 Calcium Level 8.2 White Blood Count 9.7 Red Blood Count 3.64 Hemoglobin 10.1 Hematocrit 31.2 Mean Corpuscular Volume 85.8 Mean Corpuscular Hemoglobin 27.6 Mean Corpuscular Hemoglobin 32.2 Concent Red Cell Distribution Width 13.4 Platelet Count 249 Mean Platelet Volume 7.1 Result Diagram: 07/28/16 1013 07/28/[address] scan and MRI with findings as outlined above Assessment and Plan Assessment and Plan Urologic impression: #1 recent development of left hydronephrosis with forniceal rupture of indeterminate etiology possibly related to recent stone passage. #2 resolution of the left hydronephrosis Plan: #1 urologically stable to DC home on oral pain medication #2 will have my office arrange outpatient evaluation to include cystoscopy, left retrograde pyelogram and possible left ureteroscopy. Problem Qualifiers (1) Constipation: Qualified Code: K59.00 - Constipation, unspecified constipation type Ronnie Bowden MD Jul 28, 2016 17:06
[2016-07-28] MEDS: cefTRIAXone INJ 1,000 MG in SODIUM CHLORIDE 0.9% INJ 100 ML IV SCH (18:00)
[2016-07-28] MEDS ORDERED: HYDR-3288 PO (18:10)
[2016-07-28] MEDS ORDERED: ACETAMINOPHEN/HYDROcodone 325 MG/7.5 MG TAB PO PRN (18:30)
[2016-08-12] MEDS ORDERED: DOCU100C PO (10:33)
== END 2016-07-28 20:52 | disposition home or self-care (01) ==
LOC: NEPC 11:07 → NEDA 16:05 → NEPGCP 17:56
PROVIDERS: ADMIT Specialist; ATTEND Specialist
DX: R10.9 Unspecified abdominal pain (principal); N12 Tubulo-interstitial nephritis, not specified as acute or chronic; N13.30 Unspecified hydronephrosis; K59.00 Constipation, unspecified; I10 Essential (primary) hypertension; M47.894 Other spondylosis, thoracic region; Z80.0 Family history of malignant neoplasm of digestive organs
CPT/HCPCS: 72072; 74176; 74183; 80048; 80053; 81001; 83690; 85025; 85027; 96374; 96375; 96376; 99285; A9579; G0378; J0696; J1170; J2270; J2405; J7030

== ENCOUNTER → 2016-07-30 | Day surgery (SDC) | payer OTHER ==
[~2016-07-30] VITALS: Ht 157.5 cm; Wt 49.1 kg
[~2016-07-30] MED LIST: AMLO5 PO; DO NOT ADM ANY ANTICOAGULANT DRUGS XX PRN; DOCU100C PO; DOCU1CAP39 PO; HYDR-3288 PO; INSULIN HUMAN REGULAR 1,000 UNITS/10 ML VIAL SQ PRN; IOHEXOL 300 MG/ML 50 ML BTL (for RAD DIAG) ONE; LACTATED RINGER'S 1000 ML IV SCH; METOPROLOL TARTRATE 25 MG TAB PO PRN; MIDAZOLAM HCL 2 MG/2 ML VIAL ONE; ONDANSETRON HCL 4 MG/2 ML VIAL IV PRN; ONDANSETRON HCL 4 MG/2 ML VIAL IV PUSH ONE; PROPOFOL 200 MG/20 ML AMP IV ONE; SODIUM CHLORID 0.9% 500 ML IV SCH; SODIUM CHLORIDE 0.9% INJ 100 ML ONE; ceFAZolin 1,000 MG/NS 100 ML IV SCH; ceFAZolin INJ 1,000 MG VIAL ONE; oxyCODONE/ACETAMINOPHEN 5 MG/325 MG TAB PO PRN
[2016-07-30 11:41] VITALS: BP 150/61; PULSE 64; RESP 16; TEMP 97.8; O2SAT 100
[2016-07-30 14:25] VITALS: BP 149/75; PULSE 72; RESP 18; TEMP 98.2; O2SAT 100
--- NOTE | 2016-08-02 23:58 | EKG ---
Date Performed: 07/30/2016 Time Performed: 11:34:15 PTAGE: 66 years EKG: Sinus rhythm Nonspecific ST and T wave abnormalities BORDERLINE ECG NO PREVIOUS TRACING DOCTOR: Aníbal Hudson Interpretating Date/Time 08/02/2016 23:57:12
--- NOTE | 2016-08-04 07:19 | MP ---
cc: ELI BOWDEN MD DATE OF SURGERY: 07/30/2016 INDICATION FOR PROCEDURE This is the case of a pleasant 66-year-old female who recently presented to the emergency room with left flank pain. Work-up included a CT scan that demonstrated left hydronephrosis with waterseal rupture. No definitive obstructing stones were seen. There was some edema noted to the proximal left ureter. A subsequent MRI failed to demonstrate any significant pathology. The patient presents today to complete her work-up with cystoscopy and a left retrograde pyelogram with possible left ureteroscopy. PREOPERATIVE DIAGNOSIS History of left hydronephrosis. POSTOPERATIVE DIAGNOSIS Resolved left hydronephrosis. FACILITY SECURITY OFFICER SURGEON Dr. Bowden ANESTHESIA General. PROCEDURES PERFORMED Cystoscopy and left retrograde pyelogram. COMPLICATIONS None. ESTIMATED BLOOD LOSS None. SPECIMENS None. OPERATIVE PROCEDURE IN DETAIL The patient was brought to the operating room suite and placed supine on the cysto table. She was then placed under general anesthesia. She was then repositioned in the dorsal lithotomy position and prepped and draped in normal sterile fashion. After an appropriate timeout was undertaken, I proceeded with cystoscopic evaluation utilizing the rigid cystoscope with the 20-Cymro sheath and 30-degree lens. Both right and left ureteral orifices were in correct anatomic position effluxing clear yellow urine. There no bladder mucosal lesions, calculi or diverticular formation. I then proceeded with passing a Sensor 0.035 wire up the patient's left ureter under fluoroscopic guidance. A 6-Cymro open-ended ureteral catheter was then advanced several centimeters up the left ureter and the wire was withdrawn. A left retrograde pyelogram study was then performed. There was prompt filling and drainage of the left collecting system. There was no evidence of hydronephrosis or filling defects noted. The bladder was next drained of all irrigant fluid and the cystoscope was withdrawn. The patient tolerated the procedures without complications and was transferred to the PACU in satisfactory condition. MD MAVERICK Dunham/BT /1:14 PM /7:02 AM
== END | disposition home or self-care (01) ==
LOC: HSDC 10:58
PROVIDERS: ATTEND Urology
DX: N13.30 Unspecified hydronephrosis (principal); N12 Tubulo-interstitial nephritis, not specified as acute or chronic; I10 Essential (primary) hypertension; K59.00 Constipation, unspecified
CPT/HCPCS: 00910; 52000; 74420; 93005; C1769; J0690; J2250; J2405; J3010; J7120; Q9967

== ENCOUNTER → 2016-08-12 | Outpatient (CLI) | payer OTHER ==
[~2016-08-12] MED LIST changes: -DO NOT ADM ANY ANTICOAGULANT DRUGS XX PRN; -INSULIN HUMAN REGULAR 1,000 UNITS/10 ML VIAL SQ PRN; -IOHEXOL 300 MG/ML 50 ML BTL (for RAD DIAG) ONE; -LACTATED RINGER'S 1000 ML IV SCH; -METOPROLOL TARTRATE 25 MG TAB PO PRN; -MIDAZOLAM HCL 2 MG/2 ML VIAL ONE; -ONDANSETRON HCL 4 MG/2 ML VIAL IV PRN; -ONDANSETRON HCL 4 MG/2 ML VIAL IV PUSH ONE; -PROPOFOL 200 MG/20 ML AMP IV ONE; -SODIUM CHLORID 0.9% 500 ML IV SCH; -SODIUM CHLORIDE 0.9% INJ 100 ML ONE; -ceFAZolin 1,000 MG/NS 100 ML IV SCH; -ceFAZolin INJ 1,000 MG VIAL ONE; -oxyCODONE/ACETAMINOPHEN 5 MG/325 MG TAB PO PRN
[2016-08-12 10:45] LABS: AUTOMATED NEUTROPHIL # 6.5 TH/MM3 (1.8-7.7); BASOPHIL % 0.3 % (0.0-2.0); EOSINOPHIL # 0.1 TH/MM3 (0-0.4); EOSINOPHIL % 1.1 % (0.0-4.0); HEMATOCRIT 32.3 % (35.0-46.0); HEMO FLAGS DIFF FINAL; LYMPH % 21.4 % (9.0-44.0); MEAN CELL VOLUME 85.5 FL (80.0-100.0); MEAN CORPUSCULAR HEMOGLOBIN 28.3 PG (27.0-34.0); MEAN CORPUSCULAR HGB CONC 33.1 % (32.0-36.0); MONO % 6.8 % (0.0-8.0); NEUT % 70.4 % (16.0-70.0); PLATELET COUNT 375 TH/MM3 (150-450); RED BLOOD COUNT 3.78 MIL/MM3 (4.00-5.30); RED CELL DISTRIBUTION WIDTH 13.3 % (11.6-17.2); WHITE BLOOD COUNT 9.2 TH/MM3 (4.0-11.0)
[2016-08-12 11:03] LABS: APTT (PATIENT) 29.4 SEC (24.3-30.1)
[2016-08-12 11:13] LABS: ALKALINE PHOSPHATASE 87 U/L (45-117); ALT (GPT) 26 U/L (10-53); ANION GAP 8 MEQ/L (5-15); AST (GOT) 17 U/L (15-37); BICARBONATE 30.1 MEQ/L (21.0-32.0); BLOOD UREA NITROGEN 14 MG/DL (7-18); CHLORIDE 101 MEQ/L (98-107); GLOMERULAR FILTRATION RATE 48 ML/MIN (>89); GLUCOSE,FASTING 90 MG/DL (74-99); POTASSIUM 4.1 MEQ/L (3.5-5.1); SODIUM (NA) 139 MEQ/L (136-145); TOTAL BILIRUBIN ADULT 0.3 MG/DL (0.2-1.0)
--- NOTE | 2016-08-12 11:19 | RADRPT ---
EXAM DATE/TIME: 08/12/2016 11:05 [facility] COMPARISON: No previous studies available for comparison. INDICATIONS : Evaluate for pnuemonia, pneumothorax, or communicable disease. Pre-op for cervix surgery. MEDICAL HISTORY : None. SURGICAL HISTORY : None. ENCOUNTER: Initial ACUITY: 1 day PAIN SCORE: 0/10 LOCATION: Bilateral chest FINDINGS: PA and lateral views of the chest. 1 cm nodular density in the left upper lungs zone. The lungs are o therwise clear. Cardiomediastinal silhouette within normal limits. No evidence of pleural effusion or pneumothorax. CONCLUSION: 1 cm nodular density in the left upper lung zone. Recommend chest CT without cont rast to evaluate for pulmonary nodule. No other acute cardiopulmonary disease identified. Mgiuelito Rosas MD on August 12, 2016 at 11:15 Board Certified Radiologist. This report was verified electronically.
== END ==
LOC: CPRE 09:53
PROVIDERS: ATTEND Obstetrics & Gynecology Gynecologic Oncology
DX: Z01.812 Encounter for preprocedural laboratory examination (principal); Z01.811 Encounter for preprocedural respiratory examination; C53.9 Malignant neoplasm of cervix uteri, unspecified
CPT/HCPCS: 36415; 71020; 80053; 85025; 85610; 85730

== ENCOUNTER → 2016-08-24 | Day surgery (SDC) | payer OTHER ==
[~2016-08-24] VITALS: Ht 157.5 cm; Wt 48.2 kg
[~2016-08-24] MED LIST changes: +ACETAMINOPHEN 1000 MG/100 ML VIAL IV ONE; +DO NOT ADM ANY ANTICOAGULANT DRUGS XX PRN; -DOCU1CAP39 PO; +FERRIC SUBSULFATE 8 ML TOP SOLN TOPICAL ONE; +INSULIN HUMAN REGULAR 1,000 UNITS/10 ML VIAL SQ PRN; +KETOROLAC TROMETHAMINE 30 MG/ML (IVP) VIAL IV PUSH PRN; +LACTATED RINGER'S 1000 ML IV SCH; +LIDOCAINE 1%/EPINEPHrine 1:100,000 SOLN 30 ML VIAL ONE; +METOPROLOL TARTRATE 25 MG TAB PO PRN; +ONDANSETRON HCL 4 MG/2 ML VIAL IV PUSH ONE; +PROPOFOL 200 MG/20 ML AMP IV ONE; +SODIUM CHLORID 0.9% 500 ML IV SCH; +oxyCODONE/ACETAMINOPHEN 5 MG/325 MG TAB PO PRN
[2016-08-24 12:45] VITALS: BP 158/77; PULSE 70; RESP 16; TEMP 98.4; O2SAT 100
[2016-08-24 17:08] VITALS: BP 134/57; PULSE 72; RESP 16; TEMP 98.9; O2SAT 100
--- NOTE | 2016-08-25 23:22 | MP ---
cc: NEGRA LANTIGUA MD,ELI CABRERA MD, MD DATE OF SURGERY: 08/24/2016 PREOPERATIVE DIAGNOSIS: 1. Postmenopausal bleeding. 2. Adenocarcinoma on Pap smear. 3. Retroperitoneal adenopathy on imaging. POSTOPERATIVE DIAGNOSIS 1. Postmenopausal bleeding. 2. Adenocarcinoma on Pap smear. 3. Retroperitoneal adenopathy on imaging. 4. Clinical stage III-B endocervical adenocarcinoma. PROCEDURE Examination under anesthesia, cervix biopsies, cystoscopy, proctoscopy. SURGEON Kassandra Orozco MD. [employer] [place] physician assistant surgery ANESTHESIA: General endotracheal anesthesia. INTRAOPERATIVE CONSULT Dr. 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 Pap smear suggested adenocarcinoma. Imaging showed some retroperitoneal adenopathy. She was seen in [employer]ER oncology, counseled regarding moving forward obtaining additional information including tissue biopsy confirmation and having a better understanding of the extent of the problem as well as the origin and she presents now for that endeavor. FINDINGS On exam under anesthesia there is no appreciably enlarged inguinal lymph nodes. External genitalia without mass or lesion. The cervix is completely replaced with tumor, the cervical os is not identifiable, the tumor extends to the upper vagina circumferentially most prominent on the right with tumor extending down to approximately 1/3 of the upper vagina. There is bilateral parametrial infiltration that extends all the way to the right pelvic sidewall where it is fixed to the right pelvic sidewall. There is left parametria extension that comes within close proximity the left pelvic sidewall and may have some early infiltration to the left pelvic sidewall, but the tumor is less prominent and less fixed on the left. On cystoscopy the bladder mucosa is normal circumferentially. There is no mass, polyp, no evidence of infiltration, no evidence of tumor. The ureteral ostia are visualized bilaterally and there is efflux of urine noted bilaterally. On rigid proctosigmoidoscopy to a depth of 20 cm the mucosa appears normal circumferentially, there is no mass or polyp. No infiltration, no significant deviation to the normal anatomy from extrinsic compression. Frozen section confirmed adenocarcinoma. Clinically this appears to be a cervical cancer and would be clinical stage III-B given the extension to the pelvic sidewall. PROCEDURE The patient taken to the operating room placed in dorsal lithotomy position after laryngeal mask anesthesia was administered. Time-out was undertaken. The patient was identified by sight, recognition and hospital ID bracelet and proposed procedure was reviewed and confirmed. Exam under anesthesia was performed with findings as described above. She was prepped, draped in sterile fashion. Biopsies were obtained from the cervix, tissue was sent for frozen section analysis that eventually came back as adenocarcinoma. Cystoscopy was performed using a 70 degrees scope with findings as described above. The bladder was drained. Rigid proctosigmoidoscopy was performed with findings as described above. Change of sterile gloves was undertaken. We reexamined and placed Monsel's hemostatic agent on the cervix and on the biopsy sites. All sites were hemostatic. There were no remaining foreign objects in the vagina. Preliminary and final counts were correct. She was returned to dorsal supine position and pending reversal of anesthesia when I left the operating room to precede her to the Post Anesthesia Care Unit. MD CANDACE Hardy/GEN /2:59 PM /10:52 PM
== END | disposition home or self-care (01) ==
LOC: HSDC 11:11
PROVIDERS: ATTEND Obstetrics & Gynecology Gynecologic Oncology
DX: C53.0 Malignant neoplasm of endocervix (principal); R59.0 Localized enlarged lymph nodes
CPT/HCPCS: 00902; 00910; 00940; 45300; 52000; 57500; 86850; 86900; 86901; 88305; 88331; J0131; J1885; J2405; J3010; J7120